=== PATIENT | female | born 1965 | race Caucasian/White ===

== ENCOUNTER 2024-10-23 12:06 | Inpatient (IN) | payer OTHER ==
[2024-10-23] VITALS (12 sets, daily range): BP systolic 89–112; BP diastolic 47–60
[~2024-10-23] VITALS: Ht 160 cm; Wt 67.7 kg
[2024-10-23] MEDS ORDERED: NS 1,000 ML IV SCH ×2 (12:30→17:00)
[2024-10-23] MEDS ORDERED: METO25ER (13:00)
[2024-10-23] MEDS ORDERED: METF500 (13:01)
[2024-10-23] MEDS ORDERED: FARXIGA5 MG (13:01)
[2024-10-23] MEDS ORDERED: FOLI1 (13:01)
[2024-10-23] MEDS ORDERED: DEFERASIROX (13:02)
[2024-10-23] MEDS ORDERED: ELIQUIS5 M2 (13:02)
[2024-10-23 13:15] LABS: BASOPHILS ABSOLUTE AUTO 0.13 K/mm3 (0.00-0.23); BASOPHILS PERCENT AUTO 1 % (0-2); EOSINOPHILS ABSOLUTE AUTO 0.08 K/mm3 (0.00-0.68); EOSINOPHILS PERCENT AUTO 1 % (0-6); Hematocrit 21.9 % (33.0-51.0); Hemoglobin 8.2 g/dL (11.5-16.0); IMMATURE GRAN ABSOLUTE AUTO 0.04 K/mm3 (0.00-0.10); IMMATURE GRAN PERCENT AUTO 0 % (0-1); LYMPHOCYTES ABSOLUTE AUTO 2.88 K/mm3 (0.84-5.20); LYMPHOCYTES PERCENT AUTO 28 % (21-46); MONOCYTES ABSOLUTE AUTO 1.35 K/mm3 (0.16-1.47); MONOCYTES PERCENT AUTO 13 % (4-13); Mean Corpuscular HGB 32.2 pg (26.0-34.0); Mean Corpuscular HGB Conc 37.4 g/dL (31.5-36.5); Mean Corpuscular Volume 86 fL (80-100); NEUTROPHILS ABSOLUTE AUTO 5.72 K/mm3 (1.96-9.15); NEUTROPHILS PERCENT AUTO 56 % (41-73); NRBC ABSOLUTE 0.07 K/mm3 (0.00-0.02); NRBC Auto 0.7 /100 WBC (0.0-0.2); Platelet Count 769 K/mm3 (150-400); RDW Coefficient Variation 25.1 % (11.7-14.2); RDW Standard Deviation 72.1 fL (35.1-46.3); Red Blood Cell Count 2.55 M/mm3 (3.80-5.20)
[2024-10-23 13:27] LABS: Albumin, Blood 4.1 g/dL (3.4-5.0); Albumin/Globulin Ratio 1.7 (0.8-1.8); Bilirubin, Total 9.6 mg/dL (0.1-1.0); Calcium, Blood 9.7 mg/dL (8.5-10.1); Creatinine, Blood 0.58 mg/dL (0.40-1.00); Globulin, Blood 2.4 g/dL (2.2-4.0); Total Protein, Blood 6.5 g/dL (6.4-8.2)
[2024-10-23] MEDS ORDERED: dilTIAZem HCL 125 MG in Dextrose 5% 100 ML IV SCH (13:55)
[2024-10-23] MEDS ORDERED: Lactated Ringer's 1,000 ML IV ONE (14:50)
[2024-10-23] MEDS ORDERED: Calcium Gluconate 10% 1,000 MG in NS 50 ML IV ONE (15:00)
[2024-10-23] MEDS ORDERED: TraZODone HCl 50 MG Tab PO PRN (17:00)
[2024-10-23] MEDS ORDERED: Magnesium Hydroxide Conc 10 ML UDC PO PRN (17:00)
[2024-10-23] MEDS ORDERED: Ondansetron 4 MG TAB PO PRN (17:00)
[2024-10-23] MEDS ORDERED: Bisacodyl 10 MG Supp PR PRN (17:00)
[2024-10-23] MEDS ORDERED: NS 1,000 ML IV ONE (17:57)
--- NOTE | 2024-10-23 19:14 | NUR ---
Admit note Received report from SERG Thompson in ED, patient transfered to room via gurney, 1 person assist to bed. Pt has amio gtt infusing and NS infusing per orders. BP soft, hr 90-130, flipping back and forth from NSR with pac and AFIB per Amelia in tele. Other vss. Report given to oncoming RN.
[2024-10-23] MEDS ORDERED: ELIQUIS5 M2 PO (19:24)
[2024-10-23] MEDS ORDERED: Misc. Tablet PO SCH (20:30)
[2024-10-23] MEDS ORDERED: Famotidine 20 MG Tab PO SCH (21:00)
[2024-10-23] MEDS ORDERED: Lactobacil 2-S.Thermo-Bifido 1 1 Cap PO SCH (21:00)
[2024-10-23] MEDS ORDERED: Apixaban 5 MG Tab PO SCH (21:00)
[2024-10-23] MEDS ORDERED: Metoprolol Tartrate 25 MG Tab PO SCH ×2 (21:00)
[2024-10-23 21:46] LABS: RETIC HGB EQUIVALENT 35.7 pg (28.20-36.60); RETICULOCYTE ABSOLUTE 0.0663 M/mm3 (0.0200-0.1100); RETICULOCYTE COUNT PERCENT 3.3 % (0.50-2.50)
[2024-10-23 22:00] LABS: International Normalized Ratio 1.23
[2024-10-23 22:07] LABS: Bilirubin, Direct 0.5 mg/dL (0.0-0.3); Bilirubin, Indirect 5.3 mg/dL (0.1-0.7); Bilirubin, Total 5.8 mg/dL (0.1-1.0)
[2024-10-24] VITALS (10 sets, daily range): BP systolic 89–99; BP diastolic 49–65
[2024-10-24 04:15] LABS: Hemoglobin 6.2 g/dL (11.5-16.0); Mean Corpuscular HGB 31.6 pg (26.0-34.0); Mean Corpuscular HGB Conc 37.3 g/dL (31.5-36.5); Mean Corpuscular Volume 85 fL (80-100); Mean Platelet Volume 9.8 fL (9.1-12.4); NRBC ABSOLUTE 0.37 K/mm3 (0.00-0.02); NRBC Auto 3.2 /100 WBC (0.0-0.2); Platelet Count 605 K/mm3 (150-400); RDW Coefficient Variation 23.9 % (11.7-14.2); RDW Standard Deviation 66.4 fL (35.1-46.3); Red Blood Cell Count 1.96 M/mm3 (3.80-5.20); White Blood Cell Count 11.58 K/mm3 (4.00-11.30)
[2024-10-24 04:18] LABS: Hematocrit 16.6 % (33.0-51.0)
[2024-10-24] MEDS ORDERED: NS 500 ML IV SCH ×2 (04:35→11:30)
[2024-10-24 04:46] LABS: Albumin, Blood 3.1 g/dL (3.4-5.0); Albumin/Globulin Ratio 1.7 (0.8-1.8); Bilirubin, Total 4.5 mg/dL (0.1-1.0); Bun/Creatinine Ratio 27.7 (12.0-20.0); Calcium, Blood 8.5 mg/dL (8.5-10.1); Creatinine, Blood 0.69 mg/dL (0.40-1.00); Globulin, Blood 1.8 g/dL (2.2-4.0); Potassium, Blood 3.3 mmol/L (3.5-5.5); Total Protein, Blood 4.9 g/dL (6.4-8.2)
--- NOTE | 2024-10-24 06:08 | NUR ---
SHIFT SUMMARY PT IS A&O X4, ABLE TO MAKE NEEDS KNOWN, MOVING ALL EXTREMITIES WITH PURPOSE, REPOSITIONING SELF IN BED, USING CALL LIGHT APPROPRIATELY, PT EDUCATED TO CALL BEFORE AMBULATING/PT SBA TO [facility] FOR CORD MANAGEMENT. CONTINUOUS SPO2, SPO2 GREATER THAN 90% ON RA, LUNGS SOUND CLEAR T/O NO SIGNS OF RESPIRATORY DISTRESS NOTED THIS SHIFT. CONTINUOUS TELE MONITORING, PT CONVERED TO SINUS RHYTHM FROM AFIB SHORTLY AFTER ARRIVAL TO PCU 04, AMIODARONE DRIP RUNNING PER EMAR , PT DENIES CHEST P/P, PULSES PRESENT T/O, BP SOFT WITH MAP GREATER THAN 60/ NOTIFIED MD GREGORY, CAP REFILL WNL. BOWEL TONES PRESENT IN ALL 4Q, PT DENIES FEELINGS OF NAUSEA OR CONSTIPATION, PT REPORTS RIGHT UPPER QUADRANT PAIN DURING PALPATION THAT PT STATES IS WORSE AFTER SHE EATS/ NOTIFED [employer] IN[employer] TAYLOR. PT VOIDING IND, URINE LIZETH IN COLOR PT SKIN IS APPEARS JAUNDICED BED LOWEST POSITION, CALL LIGHT IN REACH, AWAITING TO GIVE REPORT TO ONCOMING RN.
[2024-10-24] MEDS ORDERED: Potassium Chloride 20 MEQ TabCR PO ONE (06:20)
[2024-10-24] MEDS ORDERED: Insulin Human Lispro 100 Units/ML 3ML Syringe SC SCH (07:30)
[2024-10-24 10:54] LABS: Percent Saturation 7.8 % (15.0-50.0)
--- NOTE | 2024-10-24 12:17 | NUR ---
UPDATE: BLOOD PRODUCTS CURRENTLY TRANSFUSING. PATIENT DENIES ANY SYMPTOMS OF COMPLICATIONS AT THIS TIME, LUNG SOUNDS ARE CLEAR AND UNLABORED. PATIENT REPORTS MILD DISCOMFORT AT IV INSERTION SITE. SITE IS CURRENTLY WNL.
[2024-10-24 15:50] LABS: Hematocrit 19.2 % (33.0-51.0); Hemoglobin 7.2 g/dL (11.5-16.0); Mean Corpuscular HGB 31.3 pg (26.0-34.0); Mean Corpuscular Volume 84 fL (80-100); Mean Platelet Volume 9.8 fL (9.1-12.4); Platelet Count 566 K/mm3 (150-400); RDW Coefficient Variation 22.2 % (11.7-14.2); RDW Standard Deviation 62.7 fL (35.1-46.3)
[2024-10-24 15:51] LABS: Mean Corpuscular HGB Conc 37.5 g/dL (31.5-36.5); NRBC ABSOLUTE 0.52 K/mm3 (0.00-0.02); NRBC Auto 5.4 /100 WBC (0.0-0.2); White Blood Cell Count 9.64 K/mm3 (4.00-11.30)
[2024-10-24 16:16] LABS: BASOPHILS ABSOLUTE MAN 0.09 K/mm3 (0.00-0.23); BASOPHILS PERCENT MAN 1 % (0-2); EOSINOPHILS ABSOLUTE MAN 0.48 K/mm3 (0.00-0.68); EOSINOPHILS PERCENT MAN 5 % (0-6); LYMPHOCYTES ABSOLUTE MAN 3.95 K/mm3 (0.84-5.20); LYMPHOCYTES PERCENT MAN 41 % (21-46); MONOCYTES ABSOLUTE MAN 1.25 K/mm3 (0.16-1.47); MONOCYTES PERCENT MAN 13 % (4-13); NEUTROPHILS ABSOLUTE MAN 3.85 K/mm3 (1.96-9.15); SEG NEUTROPHILS PERCENT MAN 40 % (41-73); TOTAL CELLS COUNTED 100
--- NOTE | 2024-10-24 16:55 | NUR ---
FAIRING MAN SHIFT SUMMARY PATIENT IS ALERT, FOLLOWS COMMANDS, AND ABLE TO MAKE NEEDS KNOW. BLOOD PRESSURE HAS BEEN SLIGHTLY HYPOTENSIVE, THROUGHOUT SHIFT BUT MAP >65, PATIENT REPORTS THAT THIS IS HER BASELINE. TELE IN PLACE, NORMAL SINUS RHYTHM IN THE 70'S THROUGHOUT SHIFT, PATIENT DENIES PRESENCE OF CHEST PAIN OR PRESSURE DURING THIS SHIFT, AMIO DRIP TRANSFUSING. SPO2 >90% ON RA. PATIENT REPORTS RUQ ABDOMINAL PAIN THAT IS WORSE AFTER SHE EATS, PATIENT REPORTS THIS STARTED PRIOR TO ADMISSION, REPORTS MILD NAUSEA WELL. PATIENT RECEIVED ONE UNIT OF PRBC DUE TO LOW HEMOGLOBIN, PATIENT TOLERATED WELL. PATIENT AMBULATES WITH SBA TO MANAGE CORDS AND LINES. BED IS IN LOWEST POSITION, CALL LIGHT IS WITHIN REACH.
[2024-10-24] MEDS ORDERED: Amiodarone HCl 200 MG Tab PO SCH (22:00)
[2024-10-24] MEDS ORDERED: Ibuprofen 400 MG Tab PO PRN (23:55)
[2024-10-25] VITALS (9 sets, daily range): BP systolic 100–123; BP diastolic 59–74
--- NOTE | 2024-10-25 00:10 | NUR ---
SHIFT SUMMARY CARDIAC: METOPROLOL HELD. SYSTOLICS IN THE 80'S, MAPS GREATER THAN 65. ASYMPTOMATIC. HR IN 60'S-70'S. ORAL AMIO LOADING DOSE GIVEN. ECHO NOT YET PLACED AN ORDER- PROVIDER NOTIFIED. IBUPROFEN GIVEN FOR BACK ACHE.
[2024-10-25 04:33] LABS: Bun/Creatinine Ratio 24.4 (12.0-20.0); Calcium, Blood 8.5 mg/dL (8.5-10.1); Creatinine, Blood 0.7 mg/dL (0.40-1.00); Phosphorus, Blood 3.3 mg/dL (2.5-4.9); Potassium, Blood 3.8 mmol/L (3.5-5.5)
[2024-10-25 05:04] LABS: BASOPHILS ABSOLUTE AUTO 0.08 K/mm3 (0.00-0.23); BASOPHILS PERCENT AUTO 1 % (0-2); EOSINOPHILS ABSOLUTE AUTO 0.68 K/mm3 (0.00-0.68); EOSINOPHILS PERCENT AUTO 5 % (0-6); Hematocrit 19.4 % (33.0-51.0); IMMATURE GRAN ABSOLUTE AUTO 0.07 K/mm3 (0.00-0.10); IMMATURE GRAN PERCENT AUTO 1 % (0-1); LYMPHOCYTES ABSOLUTE AUTO 5.68 K/mm3 (0.84-5.20); LYMPHOCYTES PERCENT AUTO 45 % (21-46); MONOCYTES ABSOLUTE AUTO 1.51 K/mm3 (0.16-1.47); MONOCYTES PERCENT AUTO 12 % (4-13); Mean Corpuscular Volume 86 fL (80-100); Mean Platelet Volume 9.9 fL (9.1-12.4); NEUTROPHILS ABSOLUTE AUTO 4.61 K/mm3 (1.96-9.15); NEUTROPHILS PERCENT AUTO 36 % (41-73); NRBC ABSOLUTE 1.08 K/mm3 (0.00-0.02); NRBC Auto 8.6 /100 WBC (0.0-0.2); Platelet Count 620 K/mm3 (150-400); RDW Coefficient Variation 22.3 % (11.7-14.2); RDW Standard Deviation 59.5 fL (35.1-46.3); Red Blood Cell Count 2.27 M/mm3 (3.80-5.20); White Blood Cell Count 12.63 K/mm3 (4.00-11.30)
[2024-10-25 05:05] LABS: Hemoglobin 7.3 g/dL (11.5-16.0); Mean Corpuscular HGB 32.2 pg (26.0-34.0); Mean Corpuscular HGB Conc 37.6 g/dL (31.5-36.5)
[2024-10-25 09:50] LABS: Stool Occult Bld Immuno 1 Negative (NEGATIVE)
--- NOTE | 2024-10-25 11:18 | NUR ---
UPDATE BLOOD PRODUCTS CURRENTLY TRANSFUSING. PATIENT DENIES SYMPTOMS OF COMPLICATIONS. LUNG SOUNDS ARE CLEAR THROUGHOUT AND UNLABORED.
[2024-10-25 15:09] LABS: Hematocrit 23.3 % (33.0-51.0); Hemoglobin 8.6 g/dL (11.5-16.0)
--- NOTE | 2024-10-25 15:24 | NUR ---
UPDATE PT CHANGED TO MEDICAL STATUS. REPORT GIVEN TO YELENA ULRICH TO ASSUME CARE. PT TO BE TAKEN TO MEDICAL FLOOR VIA WC. PT TAKEN UP WITH ALL BELONGINGS.
[2024-10-26] VITALS (14 sets, daily range): BP systolic 101–136; BP diastolic 55–78
[2024-10-26 05:40] LABS: Hematocrit 23.9 % (33.0-51.0); Hemoglobin 8.7 g/dL (11.5-16.0); Mean Corpuscular HGB 32.8 pg (26.0-34.0); Mean Corpuscular HGB Conc 36.4 g/dL (31.5-36.5); Mean Corpuscular Volume 90 fL (80-100); Mean Platelet Volume 9.9 fL (9.1-12.4); NRBC ABSOLUTE 2.19 K/mm3 (0.00-0.02); NRBC Auto 23.4 /100 WBC (0.0-0.2); Platelet Count 672 K/mm3 (150-400); RDW Coefficient Variation 26.1 % (11.7-14.2); RDW Standard Deviation 67.1 fL (35.1-46.3); Red Blood Cell Count 2.65 M/mm3 (3.80-5.20); White Blood Cell Count 9.37 K/mm3 (4.00-11.30)
--- NOTE | 2024-10-26 05:48 | NUR ---
SHIFT SUMMARY: Pt is admitted for afib with RVR and is a full code. Is alert and able to make needs known. ADLs have been IND. denies pain or discomfort when asked. Telly reported sinus in the 60s. Has been NPO starting at midnight for possible procedure.
[2024-10-26 06:15] LABS: Bun/Creatinine Ratio 30.3 (12.0-20.0); Calcium, Blood 8.4 mg/dL (8.5-10.1); Creatinine, Blood 0.76 mg/dL (0.40-1.00); Magnesium, Blood 2.1 mg/dL (1.6-2.4); Potassium, Blood 3.7 mmol/L (3.5-5.5)
--- NOTE | 2024-10-26 08:00 | NUR ---
pt laying in bed, awake a/ox4, pleasant and cooperative with care, follows commands well, a bit of a flat affect, lungs are clear t/o, resp even and unlabored, on r/a, no cough noted, hrr, no edema noted, ppp+2, cap refill<3 sec, vs stable, afebrile, piv site is clear and patent, btx4, abd flat soft nontender, voids without diff, skin c/w/d, nikolay gramajo, is npo will be having egd today, call light in reach.
[2024-10-26] MEDS ORDERED: Lactated Ringer's 1,000 ML IV SCH (09:45)
[2024-10-26] MEDS ORDERED: Lidocaine HCl 2% 10 ML SDA ONE (10:10)
[2024-10-26] MEDS ORDERED: propofoL 20 ML IV ONE (10:10)
[2024-10-26] MEDS ORDERED: Ketamine HCl 100 MG / ML 5ML Vial ONE (10:12)
[2024-10-26] MEDS ORDERED: Phenylephrine HCl 100 MCG/ML-NS 10MLSYR (1MG/10ML) ONE (10:13)
--- NOTE | 2024-10-26 10:27 | NUR ---
10/26/24 1027 Wandy Pierce MAC CASE WITH DR. LAWSON; SEE ANESTHESIA RECORDS.
[2024-10-26] MEDS ORDERED: Ondansetron HCl 2 MG / ML 2ML Vial ONE (10:32)
--- NOTE | 2024-10-26 11:18 | NUR ---
pt arrived to room post EGD, is very sedated, opens eyes, but not responding, pacu nurse states its the drug she was given and will wear off soon, sats are 100% on 2 liters 02, v.s. stable, resp even and unlabored. call light in reach.
--- NOTE | 2024-10-26 19:24 | NUR ---
Pt remained sedated for hrs, took a nap after waking, is fully awake for dinner, called Dr. Harris about results of EGD, she said to tell her they didn't find anything, got her some protien for dinner, is doing ok this evening. call light in reach.
[2024-10-27 04:24] LABS: HAPTOGLOBIN 22 mg/dL (30-200)
[2024-10-27 04:25] VITALS: BP 109/68
[2024-10-27 05:21] LABS: Hematocrit 24.9 % (33.0-51.0); Hemoglobin 8.7 g/dL (11.5-16.0)
--- NOTE | 2024-10-27 05:55 | NUR ---
SHIFT SUMMARY: Pt is admitted for afib with RVR and is a full code. Is alert and able to make needs known. ADLs have been IND. denies pain or discomfort when asked. Telly reported sinus in the high 50s with no events.
[2024-10-27 06:00] LABS: Bun/Creatinine Ratio 20.1 (12.0-20.0); Creatinine, Blood 0.75 mg/dL (0.40-1.00); Magnesium, Blood 2.5 mg/dL (1.6-2.4)
[2024-10-27 08:08] VITALS: BP 110/67
[2024-10-27] MEDS ORDERED: AMIODARONE HCL200 MG PO (13:07)
--- NOTE | 2024-10-27 16:19 | NUR ---
DISCHARGE SUMMARY PT DISCHARGED HOME. NEW RX SENT TO [facility] PER PT REQUEST. DISCHARGE PACKET REVIEWED WITH PT. IV REMOVED AND SITE APPEARS WNL. TELE SENT BACK TO PCU. OFFERED PT USE OF WC DOWN TO FRIEND'S VEHICLE, PT REFUSED. PT AMBULATED INDEPENDENTLY WITH FRIEND TO CAR. HOME MEDICATION RETURNED.
== END 2024-10-27 14:10 | disposition home or self-care (01) | DRG 309 ==
LOC: ER 12:06 → ERHOLD 16:57 → PCU 16:57 → MEDS 10-25 15:45
PROVIDERS: Nurse Practitioner Acute Care; Student in an Organized Health Care Education/Training Program; ADMIT Hospitalist
PROC: 30233N1 Transfusion of Nonautologous Red Blood Cells into Peripheral Vein, Percutaneous Approach (ICD-10-PCS; principal; 2024-10-24)
PROC: 0DJ08ZZ Inspection of Upper Intestinal Tract, Via Natural or Artificial Opening Endoscopic (ICD-10-PCS; 2024-10-26)
DX: I48.0 Paroxysmal atrial fibrillation (principal); I50.32 Chronic diastolic (congestive) heart failure; P61.4 Other congenital anemias, not elsewhere classified; E11.9 Type 2 diabetes mellitus without complications; I27.20 Pulmonary hypertension, unspecified; I95.9 Hypotension, unspecified; R10.13 Epigastric pain; E86.0 Dehydration; K44.9 Diaphragmatic hernia without obstruction or gangrene; Z79.01 Long term (current) use of anticoagulants; Z88.0 Allergy status to penicillin; Z90.81 Acquired absence of spleen; Z79.84 Long term (current) use of oral hypoglycemic drugs
CPT/HCPCS: 36415; 36430; 71045; 80048; 80053; 82247; 82248; 82274; 82728; 82947; 83010; 83036; 83540; 83550; 83615; 83735; 84100; 84484; 85014; 85018; 85025; 85027; 85045; 85610; 85651; 86850; 86880; 86900; 86901; 86923; 93005; 93010; 93306; 96361; 96365; 96366; 96368; 99285-25; A9270; J0282; J0612; J2003; J2371; J2405; J2704; J7030; J7060; J7120; P9016